=== PATIENT | female | born 2005 | race American Indian/Alaskan Native ===

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

== ENCOUNTER 2023-07-10 14:02 | Emergency (ER) | payer OTHER, SELFPAY ==
--- NOTE | 2023-07-10 14:06 | ED_ITS ---
<Statement entered by Jose Lamar MD - 07/10/23 15:25> I was consulted by the BARBARA, and we discussed the complexity of problems being addressed. I approved the treatment and management plan for this patient's care in the emergency department, thus performing a substantial portion of the medical decision making. Jose Lamar MD Discharge Plan Disposition Patient Disposition: Home, Self-Care Condition: Good Prescriptions Prescriptions: No Action ketorolac 10 MG tablet 10 mg PO Q6H 5 Days Qty: 20 0RF hydroxyzine pamoate 25 MG capsule 50 mg PO Q8H PRN (Reason: Headache) 3 Days Qty: 20 0RF prednisone 10 MG tablet 10 mg PO BID 3 Days Qty: 6 0RF azithromycin 250 MG tablet 250 mg PO UD DOSE PK Qty: 6 0RF Rx Instructions: Take two (2) tablets today, then one (1) tablet days #2 thru #5 ibuprofen 600 MG tablet 600 mg PO TID PRN (Reason: Headache) Qty: 18 0RF ondansetron HCl 4 MG tablet 4 mg PO TIDP PRN (Reason: Nausea And Vomiting) Qty: 12 0RF Referrals Follow up/Referrals: Dl De La Torre DO [Staff Physician] - See instructions Enoch Serra MD [Primary Care Provider] - See instructions Activity Restrictions/Add. Instructions Additional Instructions/Restrictions: Please obtain a carpal tunnel brace for each hand. You can search at any large pharmacy or medical supply house. I have referred you to orthopedics. You may take Tylenol Motrin as needed for discomfort. Avoid repetitive motions with your wrist Clinical Impressions Clinical Impression: Paresthesia of both hands Discharge ED Provider: Jose Lamar General Adult HPI General Chief complaint: Extremity Problem,Nontraumatic Stated complaint: pain in both wrist and hand Time Seen by Provider: 07/10/23 14:05 History of Present Illness HPI narrative: Patient presents for evaluation of bilateral hand pain. 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 She describes the pain only in her hands reports that it is painful and it goes away with rest. She denies any trauma. Patient does not do this particular job every day but when she does this specific station it always nguyen ppens. She has not sought treatment for this before. She has not tried any home remedies. Related Data Previous Rx's Medication Instructions Recorded hydroxyzine pamoate 25 mg capsule 50 mg (2 x 25 mg) PO Q8H PRN 01/13/19 Headache 3 days #20 caps ketorolac 10 mg tablet 10 mg PO Q6H 5 days #20 tabs 01/13/19 azithromycin 250 mg tablet 250 mg PO UD DOSE PK #6 tabs 02/07/19 prednisone 10 mg tablet 10 mg PO BID 3 days #6 tabs 02/07/19 ibuprofen 600 mg tablet 600 mg PO TID PRN Headache #18 tabs 09/29/20 ondansetron HCl 4 mg tablet 4 mg PO TIDP PRN Nausea And 09/29/20 Vomiting #12 tabs Allergies Allergy/AdvReac Type Severity Reaction Status Date / Time No Known Allergies Allergy Verified 01/01/18 18:29 [facility] Disclaimer: The information contained in this section may have been updated after the patient was seen, as this information can be updated by other users. Social History Smoking Status: Never smoker second hand exposure: No alcohol intake: never current occupational status: student Travel in the last 8 weeks: None housing: house ROS Obtained: Yes Systems reviewed as appropriate & no additional complaints except as documented Physical Exam General General appearance: alert and in no apparent distress Head Head exam: atraumatic and normal inspection Eye Eye exam: Present normal appearance Neck Neck exam: Present normal inspection, full ROM and tenderness Respiratory Respiratory exam: Present normal lung sounds bilaterally Cardiovascular Cardiovascular exam: Present regular rate and normal rhythm Extremities Exam Extremities exam: Present normal inspection and full ROM; Absent tenderness (Patient has a negative Tinel's and a negative Phalen's. I cannot provoke the paresthesias on exam patient is currently symptom-free. She is neurovascularly intact distally bilaterally) Neurological Exam Neurological exam: Present alert and oriented X3 Medical Decision Making Tez Inquiry Pt receiving controlled substance: No Vital Signs: 07/10/23 14:17 Temperature 98.5 F Temperature Source Oral Pulse Rate [Left Radial] 79 Respiratory Rate 20 Blood Pressure [Right Arm] 132/81 Blood Pressure Mean [Right Arm] 98 02 Sat by Pulse Oximetry 100 Oxygen Delivery Method Room Air Lab Data Lab results reviewed: Yes I reviewed the patient's lab results. Medical Decision Narrative: In summary patient is a 18-year-old female who presents to the emergency department for evaluation of bilateral hand paresthesia. Patient is hemodynamically stable upon arrival, afebrile. Physical exam is unremarkable and patient currently has negative Phalen's and Tinel's test however patient is also symptom-free at the moment.. Differential diagnosis includes repetitive use injury, tendinitis, carpal tunnel syndrome etc. I had an interactive discussion with the patient regarding management and treatment. Will refer to orthopedics for further evaluation. We have recommended bilateral carpal tunnel braces until evaluation by orthopedics and avoiding that particular station if possible however wearing braces while she does that motion. Critical Care Critical Care Time Critical Care Time: No
--- NOTE | 2023-07-10 14:16 | PC.NURSE ---
Wayne BRANNON at BS for pt eval
[2023-07-10 14:17] VITALS: BP 132/81; PULSE 79; RESP 20; TEMP 36.9; O2SAT 100; BMI 33.2
[2023-07-10 14:47] VITALS: BP 125/76; PULSE 80; RESP 20; TEMP 37; O2SAT 100; O2SAT 98
== END 2023-07-10 14:48 | disposition home or self-care (01) ==
PROVIDERS: Emergency Provider Emergency Medicine; PCP Internal Medicine Adolescent Medicine
DX: M79.641 Pain in right hand (principal); M79.642 Pain in left hand; R20.2 Paresthesia of skin
CPT/HCPCS: 99282

== ENCOUNTER 2023-09-16 14:01 | Emergency (ER) | payer SELFPAY ==
[2023-09-16 14:03] VITALS: BP 116/69; PULSE 80; RESP 16; TEMP 36.6; O2SAT 99; BMI 35.2
--- NOTE | 2023-09-16 14:14 | ED_ITS ---
<Statement entered by Mishel Rojas MD - 09/16/23 14:58> I was consulted by the BARBARA, and we discussed the complexity of the problems being addressed. I approved the treatment and management plan for this patient's care in the emergency department, thus performing a substantive portion of the medical decision making. Mishel Rojas MD, APRIL, FACEP Discharge Plan Disposition Patient Disposition: Home, Self-Care Condition: Good Prescriptions Prescriptions: New meclizine 25 mg tablet 25 mg PO QID PRN (Reason: dizziness) Qty: 10 0RF No Action ketorolac 10 MG tablet 10 mg PO Q6H 5 Days Qty: 20 0RF hydroxyzine pamoate 25 MG capsule 50 mg PO Q8H PRN (Reason: Headache) 3 Days Qty: 20 0RF prednisone 10 MG tablet 10 mg PO BID 3 Days Qty: 6 0RF azithromycin 250 MG tablet 250 mg PO UD DOSE PK Qty: 6 0RF Rx Instructions: Take two (2) tablets today, then one (1) tablet days #2 thru #5 ibuprofen 600 MG tablet 600 mg PO TID PRN (Reason: Headache) Qty: 18 0RF ondansetron HCl 4 MG tablet 4 mg PO TIDP PRN (Reason: Nausea And Vomiting) Qty: 12 0RF Referrals Follow up/Referrals: Enoch Serra MD [Primary Care Provider] - See instructions Jeff Benson MD [Physician] - See instructions Activity Restrictions/Add. Instructions Additional Instructions/Restrictions: Continued trying the Nasim maneuver for repeat episodes of dizziness. Take meclizine every 4 hours as needed. Prescriptions been sent to your pharmacy. I referred you to ENT if your symptoms persist please call in the morning to make an appointment. Turn to the ER for any worsening signs or symptoms. Clinical Impressions Clinical Impression: Benign paroxysmal positional vertigo Instructions Patient Instructions: Benign Paroxysmal Positional Vertigo Discharge ED Provider: Mishel Rojas General Adult HPI General Chief complaint: Dizziness Stated complaint: dizziness, headache Time Seen by Provider: 09/16/23 14:06 History of Present Illness HPI narrative: Patient presents for evaluation of dizziness. Patient reports that since that when she turns her head or bends over she gets very dizzy. She denies any chest pain nausea vomiting diarrhea fever chills hemoptysis hematochezia melena change in taste or smell trauma. She has not had any recent illnesses. Soundly when moving dizziness goes away when she sitting still not turning her head Related Data Previous Rx's Medication Instructions Recorded hydroxyzine pamoate 25 mg capsule 50 mg (2 x 25 mg) PO Q8H PRN 01/13/19 Headache 3 days #20 caps ketorolac 10 mg tablet 10 mg PO Q6H 5 days #20 tabs 01/13/19 azithromycin 250 mg tablet 250 mg PO UD DOSE PK #6 tabs 02/07/19 prednisone 10 mg tablet 10 mg PO BID 3 days #6 tabs 02/07/19 ibuprofen 600 mg tablet 600 mg PO TID PRN Headache #18 tabs 09/29/20 ondansetron HCl 4 mg tablet 4 mg PO TIDP PRN Nausea And 09/29/20 Vomiting #12 tabs meclizine 25 mg tablet 25 mg PO QID PRN dizziness #10 tabs 09/16/23 Allergies Allergy/AdvReac Type Severity Reaction Status Date / Time No Known Allergies Allergy Verified 01/01/18 18:29 [facility] Disclaimer: The information contained in this section may have been updated after the patient was seen, as this information can be updated by other users. Social History Smoking Status: Unknown if ever smoked second hand exposure: No alcohol intake: never current occupational status: student Travel in the last 8 weeks: None housing: house ROS Obtained: Yes Systems reviewed as appropriate & no additional complaints except as documented Physical Exam General General appearance: alert Head Head exam: atraumatic and normocephalic Eye Eye exam: Present normal appearance, PERRL and EOMI ENT ENT exam: Present normal exam, normal oropharynx, mucous membranes moist, TM's normal bilaterally and normal external ear exam Neck Neck exam: Present normal inspection; Absent tenderness or meningismus Respiratory Respiratory exam: Present normal lung sounds bilaterally Cardiovascular Cardiovascular exam: Present regular rate and normal rhythm Extremities Exam Extremities exam: Present normal inspection and full ROM Back Exam Back exam: Present normal inspection and full ROM; Absent tenderness Neurological Exam Neurological exam: Present alert, oriented X3, CN II-XII intact, normal gait and reflexes normal; Absent motor sensory deficit Psychiatric Psychiatric exam: Present normal affect and normal mood Medical Decision Making Tez Inquiry Pt receiving controlled substance: No Vital Signs: 09/16/23 14:03 Temperature 97.9 F Temperature Source Oral Pulse Rate [Radial] 80 Respiratory Rate 16 Blood Pressure [Right Arm] 116/69 Blood Pressure Mean [Right Arm] 84 Blood Pressure Source [Right Arm] Automatic Cuff Blood Pressure Position [Right Arm] Sitting 02 Sat by Pulse Oximetry 99 Oxygen Delivery Method Room Air Orders (Tests/Meds): ED MEDICATIONS Generic Name Dose Route Start Last Admin Trade Name Chad PRN Reason Stop Dose Admin Meclizine HCl 25 mg 09/16/23 14:18 Meclizine 25mg Tablet PO 09/16/23 14:19 ONCE ONE Medical Decision Narrative: In summary patient is a 18-year-old female who presents to the emergency department for evaluation of dizziness. Patient is hemodynamically stable upon arrival, afebrile. Physical exam is remarkable for provokable dizziness when turning her head to the left with no neurologic deficits and GCS of 15. Differential diagnosis includes benign positional vertigo versus vestibular disorder versus M?ni?re's disease etc. Initial workup was considered however patient's exam is nonfocal with no neurologic deficits thus deferred. Initial interventions include Nasim maneuver. Upon repeat evaluation patient had improvement in her symptoms after Nasim maneuver. Given this patient is appropriate for discharge with prescription sent for meclizine with first dose given here and referral to ENT. Critical Care Critical Care Time Critical Care Time: No
[2023-09-16] MEDS: MECLIZINE 25MG TABLET 25 MG PO (14:26)
[2023-09-16 14:40] VITALS: BP 116/69; PULSE 80; RESP 16; TEMP 36.6; O2SAT 99
== END 2023-09-16 14:40 | disposition home or self-care (01) ==
PROVIDERS: Emergency Provider Student in an Organized Health Care Education/Training Program; PCP Internal Medicine Adolescent Medicine
DX: H81.10 Benign paroxysmal vertigo, unspecified ear (principal); R51.9 Headache, unspecified
CPT/HCPCS: 99283

== ENCOUNTER 2024-11-20 23:43 | Emergency (ER) | payer SELFPAY ==
--- OUTSIDE RECORDS SUMMARY | 2024-11-20 23:50 | XMS_ITS | Clinical Summary ---
Author Organization [facility] Address [address] [place] [address] Care Team Providers Care Parts Identification Technician Name Role Phone Tiffanie Servin MD Unavailable [phone] Enoch Serra MD Primary Care Provider [phone] Allergies No known active allergies Medications amitriptyline (Elavil) 25 MG tabletIndication s:Migraine, unspecified, not intractable, without status migrainosus,Laundry Presser sybil daily headache Take 1 tablet (25 mg total) by mouth every night. 30 tablet 11 06/08/2021 Active Active Problems Problem Noted Date Diagnosed Date Migraine, unspecified, not i ntractable, without status migrainosus 06/08/2021 Chronic daily headache 06/08/2021 Social History Tobacco Use Types Packs/Day Years Used Date Smoking Tobacco: Never Smokeless Tobacco: Never Alcohol Use Standard Drinks/Week Comments Never 0 (1 standard drink = 0.6 oz pur e alcohol) Comments Unknown Sex and Gender Information Value Date Recorded Sex Assigned at Not on file Legal Sex Female 2:48 PM EDT Gender Identity Not on file Sexual Orientation Not on file Last Filed Vital Signs Vital Sign Reading Time Taken Comments Blood Pressure 112/70 06/08/2021 11:01 AM EDT Pulse 85 06/08/2021 11:01 AM EDT Temperature - - Respiratory Rate - - Oxygen Saturation 99% 06/08/2021 11:01 AM EDT Inhaled Oxygen Concentration - - Weight 77.2 kg (170 lb 3.1 oz) 06/08/2021 11:01 AM EDT Height 160 cm (5' 3 ) 06/08/2021 11:01 AM EDT Body Mass Index 30.15 06/08/2021 11:01 AM EDT Plan of Treatment Health Maintenance Due Date Last Done Comments [facility]-Depression Screening 2003 [facility]-Infant/Child/Adol SDOH Screenings 2003 [facility]-Varicella Vaccines (1 of 2 - 13+ 2-dose series) 2016 HPV Vaccines (1 - 3-dose series) 2018 [facility]- SDOH Screenings 2021 [facility]-Adult SDOH Screenings 2021 [facility]-DTaP,Tdap,and Td Vaccine s (1 - Tdap) 2022 [facility]-Hepatitis B Vaccines (1 of 3 - 19+ 3-dose series) 2022 [facility]-Pap Smear 2024 [id number] Vaccine (1 - 20 24-25 season) 2024 [facility]-Influenza Vaccine (#1) 2024 [facility]-Zoster Vaccines (1 of 2) 2053 [facility]-HIB Vaccines Aged Out No longer e ligible based on patient's age to complete this topic [facility]-Hepatitis A Vaccines Aged Out No longer eligible based on patient's age to complete this topic [facility]-IPV Vaccines Aged Out No longer e ligible based on patient's age to complete this topic [facility]-Pneumococcal Vaccine: Pediatrics (0 to 5 Years) and At-Risk Patients (6 to 49 Years) Aged Out No long er eligible based on patient's age to complete this topic [facility]-Rotavirus Vaccines Aged Out No lo nger eligible based on patient's age to complete this topic Insurance Abdullahi [place] [id number] [employer]ET[employer] [facility] MEDICAID Care Teams Parts Identification Technician Relationship Specialty Start Date End Date Enoch Serra MD [address] [place] [id number] PCP - General Internal Medicine 06/08/21 Tiffanie Servin MD [address] [place] [phone] Service Attending Neurology 06/08/21
[2024-11-20 23:53] VITALS: BP 150/102; PULSE 70; RESP 16; O2SAT 98; BMI 33.2
--- NOTE | 2024-11-21 | ED_ITS ---
Discharge Plan Disposition Patient Disposition: Home, Self-Care Condition: Good Prescriptions Prescriptions: No Action meclizine 25 mg tablet 25 mg PO QID PRN (Reason: dizziness) Qty: 10 0RF ketorolac 10 MG tablet 10 mg PO Q6H 5 Days Qty: 20 0RF hydroxyzine pamoate 25 MG capsule 50 mg PO Q8H PRN (Reason: Headache) 3 Days Qty: 20 0RF prednisone 10 MG tablet 10 mg PO BID 3 Days Qty: 6 0RF azithromycin 250 MG tablet 250 mg PO UD DOSE PK Qty: 6 0RF Rx Instructions: Take two (2) tablets today, then one (1) tablet days #2 thru #5 ibuprofen 600 MG tablet 600 mg PO TID PRN (Reason: Headache) Qty: 18 0RF ondansetron HCl 4 MG tablet 4 mg PO TIDP PRN (Reason: Nausea And Vomiting) Qty: 12 0RF Referrals Follow up/Referrals: Enoch Serra MD [Primary Care Provider, Internal Medicine] - See instructions Activity Restrictions/Add. Instructions Additional Instructions/Restrictions: You were evaluated in the ER and are believed to be appropriate for discharge at this time. As discussed, you are positive for mono. This is contagious so wash your hands and do not share drinks or kiss other people until you are fully cleared of this infection. This illness can make your spleen larger than it should be. Do not participate in any contact sports or any activities with a risk of falling or crashing. If you develop abdominal pain, return to the ER. Take Tylenol and ibuprofen if needed. Do not exceed the recommended dose on the bottle. Drink water and eat a small snack each time you take these medications to avoid side effects. Call your primary care office first thing this morning and ask them for an appointment on Sunday or Sunday to be reevaluated, as discussed. Return to the ER with any new, worsening, or otherwise concerning symptoms as discussed including but not limited to difficulty breathing, inability to swallow, pain with range of motion of the neck, abdominal pain especially in the left side, or anything else you are worried about. Clinical Impressions Clinical Impression: Mononucleosis Instructions Patient Instructions: DI for Mononucleosis-Adult Print Language Print Language: [place] Discharge ED Provider: Jose Lamar Adult HPI General Chief complaint: Sore Throat Stated complaint: dry mouth, trouble swallowing Time Seen by Provider: 11/20/24 23:46 Mode of Arrival: Ambulatory Source of Information: Patient Description of Symptoms (Recalled from ER Triage Doc. by RN): PT presents to the ED for evaluation of something in my throat . PT states she was dx with strep throat 2 weeks ago and finish 1 week of abx. PT states she can still eat and drink adequately. Denies running fevers. History of Present Illness HPI narrative: 19-year-old female presents to the ER describing globus sensation. She states it is intermittent and sometimes better and worse. She states she was treated for strep 2 weeks ago and finished the antibiotics but states since that time she has had this intermittent sensation. She has no neck pain, no pain with range of motion of the neck, no difficulty swallowing, is able to pass both food and drink without difficulty or emesis, no change in voice. Family at bedside confirms no change in voice. No chest pain or difficulty breathing, no abdominal pain, nausea, or vomiting. She states she has intermittent headaches but this is nothing new for her as she has a history of migraines. She has no n umbness, tingling, or weakness. No recent injuries, no weight changes or hair loss, no palpitations, no sensations of being hot or cold, not currently on any daily medications, no known drug allergies. She has no other complaints or concerns. Related Data Previous Rx's ?Medication ?Instructions ?Recorded hydroxyzine pamoate 25 mg capsule 50 mg (2 x 25 mg) PO Q8H PRN 01/13/19 Headache 3 days #20 caps ketorolac 10 mg tablet 10 mg PO Q6H 5 days #20 tabs 01/13/19 azithromycin 250 mg tablet 250 mg PO UD DOSE PK #6 tab s 02/07/19 prednisone 10 mg tablet 10 mg PO BID 3 days #6 tabs 02/07/19 ibuprofen 600 mg tablet 600 mg PO TID PRN Headache # 18 tabs 09/29/20 ondansetron HCl 4 mg tablet 4 mg PO TIDP PRN Nausea An d 09/29/20 Vomiting #12 tabs meclizine 25 mg tablet 25 mg PO QID PRN dizziness # 10 tabs 09/16/23 Allergies Allergy/AdvReac Type Severity Reaction Status Date / Time No Known Allergies Allergy Verified 01/01/18 18:29 [facility] Disclaimer: The information contained in this section may have been updated after the patient was seen, as this information can be updated by other users. Social History Smoking Status: Never smoker second hand exposure: No alcohol intake: never current occupational status: student Travel in the last 8 weeks?: None housing: house Have you lived/traveled outside [place] in past 30 days?: No Contact w/someone who lives/traveled outside [place] past 30 days?: No Exposure to someone with infectious disease in past 14 days?: No Do you have a fever (greater than 100.4 F or 38 C)?: No Have you tested positive for COVID-19?: No Exposed to someone with COVID-19 in past 14 days?: No Do you have a sore throat?: No Do you have a cough?: No Do you have any weakness?: No Do you have any diarrhea?: No Are you experiencing any unusual bleeding?: No Do you have any muscle aches/pain?: No Do you have any abdominal pain?: No Are you experiencing loss of taste or smell?: No Other Medical History Have you received the Flu Vaccine for this season: No Have you received the Pneumonia Vaccine: No ROS Obtained: Yes Systems reviewed as appropriate & no additional complaints except as documented per HPI Physical Exam General General appearance: alert and in no apparent distress Head Head exam: atraumatic and normocephalic Eye Eye exam: Present PERRL and EOMI ENT ENT exam: Present mucous membranes moist Expanded ENT Exam External ear exam: Present normal external inspection; Absent mastoid t enderness, pain with movement, external tenderness or periauricular adenopathy Mouth exam: Present tongue normal; Absent trismus, tongue elevation or tongue swelling Throat exam: Present tonsillar erythema (mild) and tonsillomegaly (moderately enlarged but tonsils not touching, at least 1.5cm of space between them at the most narrow point, airway widely patent, tonsils are equally enlarged, no deviation of the uvula); Absent tonsillar exudate, R peritonsillar mass, L peritonsillar mass or muffled voice Comment: No pain with rotation or extension of the neck Neck Neck exam: Present normal inspection, full ROM and trachea midline; Absent tenderness, lymphadenopathy or thyromegaly Expanded Neck Exam Neck exam focused ED: Absent midline tenderness, paraspinal tenderness, tracheal deviation, anterior neck swelling or thyroid enlargement Comment: No evidence of trauma Chest Chest inspection: Present symmetric chest wall rise Respiratory Respiratory exam: Present normal lung sounds bilaterally; Absent respiratory distress, wheezes or stridor Cardiovascular Cardiovascular exam: Present regular rate and normal rhythm Abdominal Exam Abdominal exam: Present soft; Absent distention or tenderness Extremities Exam Extremities exam: Present full ROM; Absent edema Neurological Exam Neurological exam: Present alert and oriented X3; Absent motor sensory deficit Psychiatric Psychiatric exam: Present normal affect and normal mood Skin Skin exam: Present warm and dry Medical Decision Making Medical Records Medical records reviewed: Yes I reviewed the patient's medical records. Screening: Per USPSTF and CDC recommendations, given the prevalence of disease in our region, it is our hospital?s policy to screen for HIV and viral Hepatitis for all patients aged 18 and over and those with ongoing risk factors. MR Comment: Review of records demonstrates patient received 7 days of amoxicillin Tez Inquiry Pt receiving controlled substance: No Vital Signs: 11/20/24 23:53 Pulse Rate [Right] 70 Respiratory Rate 16 Blood Pressure [Right Arm] 150/102 H Blood Pressure Mean [Right Arm] 118 02 Sat by Pulse Oximetry 98 Oxygen Delivery Method Room Air Orders (Tests/Meds): ED MEDICATIONS Discontinued Medications Generic Name Dose Route Start Last Admin Trade Name Freq PRN Reason Stop Dose Admin Calcium Carbonate 500 mg 11/20/24 23:55 Calcium Carbonate 500mg Chewtab PO 11/20/24 23:56 ONCE ONE ORDERS Category Date Time Status Monoscreen (Rapid) Stat Lab 11/20/24 23:55 Ordered Medical Decision Narrative: In summary, this 19-year-old female with history of migraines but no other chronic medical conditions, no daily medications, no known drug allergies presents to the emergency department today with description of globus sensation in the throat but no difficulty swallowing, patent airway, no fevers or neck pain. On initial evaluation patient is hemodynamically stable, afebrile, s peaking in full sentences with no difficulty, normal voice according to patient and family, no difficulty swallowing, passing foods and fluid easily by mouth, neck exam without thyromegaly, no mass appreciated, trachea midline, no evidence of trauma, oropharynx with mildly enlarged tonsils but tonsils are not touching, there is no exudate, tonsils are equal in size with no evidence of peritonsillar mass, patient has no pain with range of motion of the neck, no pain with extension of the neck. Differential diagnosis includes but is not limited to inadequately treated strep infection, mononucleosis, globus sensation, inflammatory changes from recent strep, also consider the possibility of reflux, I considered peritonsillar abscess, retropharyngeal abscess, but patient has no posterior oropharyngeal asymmetry or deviation, she also has no pain with range of motion of the neck or extension of the neck, no fevers, and throat is not particularly sore according to the patient, considered laryngeal spasm but patient has no changes in voice, I had considered the possibility of mass or thyromegaly but patient has no hypo or hyperthyroid symptoms, no abnormalities on palpation, and masses would not cause his waxing and waning type symptoms. I considered performing extensive hematologic and serum labs as well as CT imaging however I do not believe that would be beneficial at this time since patient has no evidence of deep space infection, no palpable mass, I believe it is most likely at this time that she is just experiencing continued effects of recent inadequately treated strep infection. Patient received calcium carbonate to treat any reflux symptoms, [place] screen ordered. Labs reviewed by me demonstrate patient is positive for mono. Since she is well-appearing with patent airway, tolerating food and drink with no difficulty swallowing, no dysphagia, and only intermittent globus sensation with no fevers, no pain with range of motion or evidence of deep space infection as discussed, I do not believe patient requires any further antibiotics at this time. I believe outpatient follow-up with PCP is appropriate. I have already discussed this with her at length. I reexamined her and appreciate no hepatosplenomegaly but advised against any contact sports or high risk activities. No new medications prescribed at this time. Patient was given instructions on symptomatic management, follow up instructions, and return precautions for the emergency department. Patient indicated understanding and was discharged in stable condition. Critical Care Critical Care Time Critical Care Time: No
[2024-11-21 00:04] VITALS: BP 132/79; PULSE 84; RESP 16; TEMP 36.8; O2SAT 99
[2024-11-21] MEDS: CALCIUM CARBONATE 500MG CHEWTAB 500 MG PO (00:06)
[2024-11-21 00:16] LABS: Monoscreen (Rapid) Positive (Negative)
[2024-11-21 00:29] VITALS: BP 132/79; PULSE 87; RESP 18; TEMP 37.2; O2SAT 99
== END 2024-11-21 00:34 | disposition home or self-care (01) ==
PROVIDERS: Emergency Provider Emergency Medicine; PCP Internal Medicine Adolescent Medicine
DX: B27.90 Infectious mononucleosis, unspecified without complication (principal); R09.A2 Foreign body sensation, throat
CPT/HCPCS: 86318; 99283